=== PATIENT | male | born 1940 | race Caucasian/White ===

== ENCOUNTER 2018-03-27 06:33 | Day surgery (SDC) | payer MEDICARE ==
[~2018-03-27 06:33] MED LIST: Acetaminophen TAB* 325 MG PO PRN; Buffered Lidocaine 0.9% SYRIN* 5 ML/SYR SYRINGE INTRADERM ONE
[2018-03-27] MEDS ORDERED: Lidocaine 2% PF * 5 ML VIAL ONE (07:17)
[2018-03-27] MEDS ORDERED: Propofol* 10 MG/ML 20 ML BTL IV PUSH ONE (07:17)
[2018-03-27] MEDS ORDERED: fentaNYL* 50 MCG/ML 2 ML VIAL (100 MCG VIAL) ONE (07:17)
[2018-03-27] MEDS ORDERED: Midazolam* 1 MG/ML 5 ML VIAL (5 MG) ONE (07:18)
[2018-03-27] MEDS ORDERED: BSS OPTH.SOL* BTL ONE (07:25)
[2018-03-27] MEDS ORDERED: Bacitracin OINTMENT* 0.5% 0.5 oz TUBE ONE (07:26)
[2018-03-27] MEDS ORDERED: Bacitracin OPHTH.OINT* 3.5 GM ONE (07:26)
[2018-03-27 08:18] VITALS: BP 134/66
--- NOTE | 2018-03-27 22:20 | OP ---
DATE OF OPERATION: 03/27/18 [facility] DATE OF : 42 SURGEON: Lalo Fermin M.D. ANESTHESIA: Local with MAC. COMPLICATIONS: None. PREOPERATIVE DIAGNOSIS: Entropion, right lower lid. POSTOPERATIVE DIAGNOSIS: Entropion, right lower lid. OPERATIVE PROCEDURE: Inferior lid retractor tuck, right lower lid. DESCRIPTION OF PROCEDURE: The patient was prepped and draped in the usual sterile fashion. Lidocaine 2% with epinephrine was infused into the right lower eyelid approximately 2 cc. A successful traction suture placed through the lid margin and the lower eyelid pulled superiorly. A subciliary incision was made with a #15 XipLink-Luis blade. Dissection carried down to the level of the inferior lid retractor using hot cautery and plastic scissors. The inferior lid retractors were identified. Reapproximated to the inferior portion of the tarsal plate using 1 mattress 5-0 Mersilene suture. Hemostasis was achieved with cautery. The lid was closed using a running 6-0 silk suture. Topical Bacitracin ointment was placed. [id number]/CPS #: [id number] MTDD
== END 2018-03-27 08:14 | disposition home or self-care (01) ==
LOC: OREAST 06:33
PROVIDERS: ATTEND Specialist
DX: H02.032 Senile entropion of right lower eyelid (principal); H35.372 Puckering of macula, left eye; H33.8 Other retinal detachments; F17.210 Nicotine dependence, cigarettes, uncomplicated; I25.10 Atherosclerotic heart disease of native coronary artery without angina pectoris; E78.5 Hyperlipidemia, unspecified; Z85.46 Personal history of malignant neoplasm of prostate; J44.9 Chronic obstructive pulmonary disease, unspecified
CPT/HCPCS: A9270-GY; J2250; J2704; J3010

== ENCOUNTER 2020-01-30 18:27 | Emergency (ER) | payer MEDICARE ==
--- OUTSIDE RECORDS SUMMARY | 2020-01-30 19:02 | XMS REPORT | Continuity of Care Document ---
:1940 External Reference #:[id number] Author Name Marianna Hodges M.D. 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 Onset: 04/14/2014 Pure hypercholesterolemia Marianna Hodges M.D. Onset: 04/14/2014 Tobacco user Marianna Hodges M.D. Onset: 04/14/2014 Essential hypertension Marianna Hodges M.D. Onset: 03/29/2015 Mixed hyperlipidemia Marianna Hodges M.D. Onset: 07/17/2017 Localized, primary osteoarthritis of the pelvic Marlen Gonzalez M.D. Onset: 08/2019 region and thigh Social History Type Date Description Comments Sex Unknown Tobacco Use Start: Unknown Current Cigarette Smoker 1 Pack Daily Smoking Status Reviewed: 12/25/19 Current Cigarette Smoker 1 Pack Daily ETOH Use Denies alcohol use Tobacco Use Start: Unknown Patient is a current 1.5 packs a day smoker, smokes every day Recreational Drug Use Denies Drug Use Exercise Type/Frequency Exercises regularly Allergies, Adverse Reactions, Alerts Active Allergies Reaction Severity Comments Date Statins increase CPK per [facility] paper chart 03/19/2014 Niacin rash per [facility] paper chart 03/19/2014 Colestipol constipation per [facility] paper chart 03/19/2014 Zocor myalgias per [facility] paper chart 03/19/2014 Pravachol per [facility] paper chart 03/19/2014 Lescol per [facility] paper chart 03/19/2014 Lipitor 03/19/2014 Zetia no help per [facility] paper chart 03/19/2014 Penicillin "sweaty, dizziness" 04/14/2014 Medications Active Medications SIG Qnty Indications Ordering Provider Date Atenolol 1 by mouth every 90tabs Unknown 25mg Tablets day Crestor 1 by mouth every 90tabs Unknown 40mg Tablets day Aspirin 1 by mouth every Unknown 81mg Tablets day Dulcolax prn Unknown 5mg Tablets DR Acetaminophen 5 tabs po every Unknown 325mg day for pain Tablets Claritin-D 24 Hour 1 tab PO q day Unknown 10-240mg Tablets ER 24HR Anoro Ellipta Unknown 62.5-25mcg/Inh Aerosol Hydrocodone-Acetaminop maximum of 4 per Unknown hen day 5-325mg Tablets Medications Administered in Office Medication SIG Qnty Indications Ordering Provider Date No Injection Marlen Gonzalez M.D. 10/15/2019 Injection Depomedrol 40MG Marlen Gonzalez M.D. 10/15/2019 Injection Depomedrol 40MG Marlen Gonzalez M.D. 07/14/2019 Injection Depomedrol 40MG Marlen Gonzalez M.D. 04/04/2019 Injection Immunizations Description No Information Available Vital Signs Date Vital Result Comment 12/25/2019 3:49pm Height 68 inches 5'8" Weight 151.00 lb with shoes and heavy clothes Heart Rate 92 /min BP Systolic 128 mmHg rue reg cuff BP Diastolic 72 mmHg rue reg cuff BP Systolic Sitting 138 mmHg lue reg cuff BP Diastolic Sitting 72 mmHg lue reg cuff BP Systolic Standing 134 mmHg lue reg cuff BP Diastolic Standing 72 mmHg lue reg cuff Respiratory Rate 14 /min BMI (Body Mass Index) 23.0 kg/m2 Ejection Fraction none 12/01/2019 3:48pm Height 68 inches 5'8" Weight 144.00 lb Heart Rate 91 /min BP Systolic Sitting 127 mmHg left arm reg cuff BP Diastolic Sitting 66 mmHg left arm reg cuff O2 % BldC Oximetry 94 % room air BMI (Body Mass Index) 21.9 kg/m2 Results Test Acquired Date Facility Test Result H/L Range Note Comp Metabolic 11/25/2019 [facility] Sodium 136 mmol/L Normal 135-[address] [place] [address] [phone] Chloride 107 mmol/L Normal 101-111 Co2 Carbon Dioxide 24 mmol/L Normal 22-32 Glucose 109 mg/dL High 70-100 Blood Urea Nitrogen 31 mg/dL High 6-24 Creatinine 1.36 mg/dL High 0.67-1.17 BUN/Creatinine Ratio 22.8 High 8-20 Calcium 8.7 mg/dL Normal 8.6-10.3 Total Protein 6.3 g/dL Low 6.4-8.9 Albumin 3.8 g/dL Normal 3.2-5.2 Globulin 2.5 g/dL Normal 2-4 Albumin/Globulin Ratio 1.5 Normal 1-3 Total Bilirubin 0.30 mg/dL Normal 0.2-1.0 Alkaline Phosphatase 125 U/L High 34-104 Alt 26 U/L Normal 7-52 Ast 27 U/L Normal 13-39 Egfr Non- 50.7 >60 Egfr 61.3 >60 1 Potassium 5.4 mmol/L High 3.5-5.0 Anion Gap 5 mmol/L Normal 2-11 CBC No Diff 11/25/2019 [facility] White Blood 10.1 10^3/uL Normal 3.5-10.[address] [place] [address] [phone] Red Blood Count 4.80 10^6/uL Normal 4.18-5.48 Hemoglobin 15.7 g/dL Normal 14.0-18.0 Hematocrit 48 % Normal 42-52 Mean Corpuscular Volume 99 fL High 80-94 Mean Corpuscular Hemoglobin 33 pg High 27-31 Mean Corpuscular HGB Conc 33 g/dL Normal 31-36 Red Cell Distribution Width 15 % Normal 10-15 Platelet Count 294 10^3/uL Normal 150-450 Mean Platelet Volume 7.4 fL Normal 7.4-10.4 Protein 11/25/2019 [facility] Total 6.3 g/dL 6.3 - Electrophoresis [address] Protein(Pep) 7.9 [place] [address] [phone] Albumin 3.1 g/dL Abnormal 3.4-4.7 Alpha-1 Globulin 0.2 g/dL 0.1-0.3 Alpha-2 Globulin 1.2 g/dL Abnormal 0.6-1.0 Beta Globulin 1.0 g/dL 0.7-1.2 Gamma Globulin 0.8 g/dL 0.6-1.6 Albumin/Globulin Ratio 0.94 Impression See Comment 2 [place]/Lambda Free 11/25/2019 [facility] [place] Free 5.85 mg/dL Abnormal [address] [place] [address] [phone] Lambda Free Light Chain 3.16 mg/dL Abnormal 4 [place]/Lambda Free Light Chain 1.85 Abnormal 5 Laboratory test 11/25/2019 [facility] Complement C3 136 mg/dL 75 - 175 6 finding [address] [place] [address] [phone] Complement C4 32 mg/dL 14 - 40 7 Neutrophil Cytoplasmic 11/25/2019 [facility] C-Anca Negative Negative AB [address] [place] [address] [phone] P-Anca Negative Negative 8 Laboratory test 11/25/2019 [facility] Hepatitis B Not Immune Abnormal Immune finding [address] [place] [address] [phone] Hepatitis B Surface Ag Nonreactive Nonreactive Hepatitis B Core AB Total Negative Negative 9 Hepatitis C Antibody 11/25/2019 [facility] HCV Index 0.01 s/c [address] [place] [address] [phone] Hepatitis C Antibody Negative Negative Xray 10/15/2019 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 The National Kidney Disease Education Program (NKDEP) does not endorse the use of the MDRD equation for patients that are not between the ages of 18 and 70, are , have extremes of body size, muscle mass, or nutritional status, or are non- or non-. According to the National Kidney Foundation, irrespective of diagnosis, the stage of the disease is based on the level of kidney function: Stage Description GFR(mL/min/1.73 m(2)) 1 Kidney damage with normal or decreased GFR 90 2 Kidney damage with mild decrease in GFR 60-89 3 Moderate decrease in GFR 30-59 4 Severe decrease in GFR 15-29 5 Kidney failure <15 (or dialysis) 2 RESULT: No apparent monoclonal protein on serum electrophoresis. Test Performed by: [facility] [place] [address] Hospice Massage Therapist: Werner Medina M.D. Ph.D.; CLIA# [id number] 3 REFERENCE VALUE 0.3300-1.94 4 REFERENCE VALUE 0.5700-2.63 5 Elevated free light chain ratios between 1.66 and 3.00 may occur due to polyclonal hypergammaglobulinemia or impaired renal clearance. An isolated increased free light chain ratio in this range should be interpreted with caution, and clinical correlation is recommended. REFERENCE VALUE 0.2600-1.65 Test Performed by: [place] [address] Hospice Massage Therapist: Werner Medina M.D. Ph.D.; CLIA# [id number] 6 Test Performed by: [place] [address] Hospice Massage Therapist: Werner Medina M.D. Ph.D.; CLIA# [id number] 7 Test Performed by: [place] [address] Hospice Massage Therapist: Werner Medina M.D. Ph.D.; CLIA# [id number] 8 Negative for cANCA and pANCA patterns by immunofluorescence. ADDITIONAL INFORMATION This test was developed and its performance characteristics determined by [facility] in a manner consistent with CLIA requirements. This test has not been cleared or approved by the U.S. Food and Drug Administration. Test Performed by: [place] [id number] Hospice Massage Therapist: Werner Medina M.D. Ph.D.; CLIA# [id number] 9 Test Performed by: [place] [address] Hospice Massage Therapist: Werner Medina M.D. Ph.D.; CLIA# [id number] Procedures Date Code Description Status 12/25/2019 16869 EKG Tracing & Interpretation Completed 10/15/2019 Inj/Aspir Major JT Or Bursa W/ US Completed 07/14/2019 Inj/Aspir Major JT Or Bursa W/ US Completed Medical Devices Description No Information Available Encounters Type Date Location Provider Dx Diagnosis Office Visit 12/25/2019 [facility] Marianna Hodges, I25.10 Athscl heart 4:00p Of Karli Martinez. disease of [place] coronary artery w/o ang pctrs E78.2 Mixed hyperlipidemia Z72.0 Tobacco use Office Visit 12/01/2019 3:30p [facility] Brigida Stone, I12.9 Hypertensive chronic kidney disease w stg 1-4/unsp chr kdny N18.3 Chronic kidney disease, stage 3 (moderate) R80.9 Proteinuria, unspecified Assessments Date Code Description Provider 12/25/2019 I25.10 Atherosclerotic heart disease of [place] Marianna Hodges M.D. coronary artery without angina pectoris 12/25/2019 E78.2 Mixed hyperlipidemia Marianna Hodges M.D. 12/25/2019 Z72.0 Tobacco use Marianna Hodges M.D. 12/01/2019 I12.9 Hypertensive chronic kidney disease with stage Brigida Stone MD 1 through stage 4 chronic kidney disease, or unspecified chronic kidney disease 12/01/2019 N18.3 Chronic kidney disease, stage 3 (moderate) Brigida Stone MD 12/01/2019 R80.9 Proteinuria, unspecified Briigda Stone MD 10/15/2019 M25.551 Pain in right hip Marlen Gonzalez M.D. 10/15/2019 M16.11 Unilateral primary osteoarthritis, right hip Marlen Gonzalez M.D. 07/14/2019 M25.551 Pain in right hip Marlen Gonzalez M.D. 07/14/2019 M16.11 Unilateral primary osteoarthritis, right hip Marlen Gonzalez M.D. Plan of Treatment Future Appointment(s):01/02/2020 11:30 am - Marlen Gonzalez M.D. at [facility] [id number]/01/2020 3:30 pm - Brigida Stone MD at [facility] [place]10/ 30/2020 - Marianna Hodges M.D.I25.10 Atherosclerotic heart disease of [place] coronary artery without angina pectorisComments:ECG is stable.Recommendations: Continue current meds.E78.2 Mixed hyperlipidemiaComments:LDL goal <70, yours 96Per pt Zetia did not help in the past.Recommendations:New injectable medication to take with Crestor an option now/future.Z72.0 Tobacco useComments: I strongly recommend completely stopping cigarettes. Functional Status Description No Information Available Mental Status Description No Information Available Referrals Description No Information Available
--- OUTSIDE RECORDS SUMMARY | 2020-01-30 19:02 | XMS REPORT | Continuity of Care Document ---
:1940 External Reference #:[id number] Author Name Marlen Gonzalez M.D. (transmitted by agent of provider Steff Juarez) Address [address] [place] [phone] Care Team Providers Name Role Phone Lang Reeves MD - Family Medicine Care Team Information Associate Professor Physician Problems Active Problems Provider Date Coronary arteriosclerosis [...] Available Vital Signs Date Vital Result Comment 01/02/2020 11:41am Height 68 inches 5'8" Heart Rate 96 /min BP Systolic 122 mmHg BP Diastolic 76 mmHg Respiratory Rate 18 /min Pain Level 5 12/25/2019 3:49pm Height 68 inches 5'8" Weight [...] Mass Index) 23.0 kg/m2 Ejection Fraction none Results Test Acquired Date Facility Test Result H/L Range Note Comp Metabolic 11/25/2019 [facility] Sodium 136 mmol/L Normal 135-[address] [place] [address] [phone] Chloride 107 mmol/L Normal 101-111 Co2 Carbon [...] mmol/L Normal 2-11 CBC No Diff 11/25/2019 [facility] White Blood 10.1 10^3/uL Normal 3.5-10.[address] [place] [address] [phone] Red Blood Count 4.80 10^6/uL Normal 4.18-5.48 Hemoglobin 15.7 g/dL Normal 14.0-18.0 Hematocrit 48 % Normal 42-52 Mean Corpuscular Volume 99 fL High 80-94 Mean Corpuscular Hemoglobin 33 pg High 27-31 Mean Corpuscular HGB Conc 33 g/dL Normal 31-36 Red Cell Distribution Width 15 % Normal 10-15 Platelet Count 294 10^3/uL Normal 150-450 Mean Platelet Volume 7.4 fL Normal 7.4-10.4 Protein 11/25/2019 [facility] Total 6.3 g/dL 6.3 - Electrophoresis [address] Protein(Pep) 7.9 [place] [address] [phone] Albumin 3.1 g/dL Abnormal 3.4-4.7 Alpha-1 Globulin 0.2 g/dL 0.1-0.3 Alpha-2 Globulin 1.2 g/dL Abnormal 0.6-1.0 Beta Globulin 1.0 g/dL 0.7-1.2 Gamma Globulin 0.8 g/dL 0.6-1.6 Albumin/Globulin Ratio 0.94 Impression See Comment 2 [place]/Lambda Free 11/25/2019 [facility] [place] Free 5.85 mg/dL Abnormal [address] [place] [address] [phone] Lambda Free Light Chain 3.16 mg/dL Abnormal 4 [place]/Lambda Free Light Chain 1.85 Abnormal 5 Laboratory test 11/25/2019 [facility] Complement C3 136 mg/dL 75 - [address] [place] [address] [phone] Complement C4 32 mg/dL 14 - 40 7 Neutrophil Cytoplasmic 11/25/2019 [facility] C-Anca Negative Negative AB [address] [place] [address] [phone] P-Anca Negative Negative 8 Laboratory test 11/25/2019 [facility] Hepatitis B Not Immune Abnormal Immune finding [address] [place] [address] [phone] Hepatitis B Surface Ag Nonreactive Nonreactive Hepatitis B Core AB Total Negative Negative 9 Hepatitis C Antibody 11/25/2019 [facility] HCV Index 0.01 s/c [address] [place] [address] [phone] Hepatitis C Antibody Negative Negative Xray 10/15/2019 Housekeeper In House Inj/Aspir Major JT Or Bursa [...] protein on serum electrophoresis. Test Performed by: [place] [address] Ob Tech: Werner Medina M.D. Ph.D.; CLIA# [id number] 3 REFERENCE VALUE 0.3300-1.94 4 REFERENCE VALUE 0.5700-2.63 5 Elevated free light chain ratios between 1.66 and 3.00 may occur due to polyclonal hypergammaglobulinemia or impaired renal clearance. An isolated increased free light chain ratio in this range should be interpreted with caution, and clinical correlation is recommended. REFERENCE VALUE 0.2600-1.65 Test Performed by: [place] [address] Ob Tech: Werner Medina M.D. Ph.D.; CLIA# [id number] 6 Test Performed by: [place] [address] Ob Tech: Werner Medina M.D. Ph.D.; CLIA# [id number] 7 Test Performed by: [place] [address] Ob Tech: Werner Medina M.D. Ph.D.; CLIA# [id number] 8 Negative for cANCA and pANCA patterns by immunofluorescence. ADDITIONAL INFORMATION This test was developed and its performance characteristics determined by [facility] in a manner consistent with CLIA requirements. This test has not been cleared or approved by the U.S. Food and Drug Administration. Test Performed by: [facility] - [address] [address] Ob Tech: Werner Medina M.D. Ph.D.; CLIA# [id number] 9 Test Performed by: [place] [address] Ob Tech: Werner Medina M.D. Ph.D.; CLIA# [id number] Procedures Date Code Description Status 12/25/2019 20172 EKG Tracing & Interpretation Completed 10/15/2019 Inj/Aspir Major JT Or Bursa W/ US Completed 07/14/2019 Inj/Aspir Major JT Or Bursa W/ US Completed Medical Devices Description No Information Available Encounters Type Date Location Provider Dx Diagnosis Office Visit 01/02/2020 [facility] Marlen Gonzalez, M25.551 Pain in right hip 11:30a at [facility] M16.11 Unilateral primary osteoarthritis, right hip Office Visit 12/01/2019 3:30p [facility] Brigida Stone, I12.9 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 01/02/2020 M16.11 Unilateral primary osteoarthritis, right hip Marlen Gonzalez M.D. 12/25/2019 I25.10 Atherosclerotic heart disease of [place] Marianna Hodges M.D. coronary artery without angina pectoris 12/25/2019 E78.2 Mixed hyperlipidemia Marianna Hodges M.D. 12/25/2019 Z72.0 Tobacco use Marianna Hodges M.D. 12/01/2019 I12.9 Hypertensive chronic kidney disease with stage Brigida Stone MD 1 through stage 4 chronic kidney disease, or unspecified chronic kidney disease 12/01/2019 N18.3 Chronic kidney disease, stage 3 (moderate) Brigida Stone MD 12/01/2019 R80.9 Proteinuria, unspecified Brigida Stone MD 10/15/2019 M25.551 Pain in right hip Marlen Gonzalez M.D. 10/15/2019 M16.11 Unilateral primary osteoarthritis, right hip Marlen Gonzalez M.D. 07/14/2019 M25.551 Pain in right hip Marlen Gonzalez M.D. 07/14/2019 M16.11 Unilateral primary osteoarthritis, right hip Marlen Gnozalez M.D. Plan of Treatment Future Appointment(s):03/01/2020 3:30 pm - Brigida Stone MD at [facility] [id number] /07/2020 - Marlen Gonzalez M.D.M25.551 Pain in right hipFollow up:Follow up: 7- 10 days before zxuuigtL41.11 Unilateral primary osteoarthritis, right hip Functional Status Description No Information Available Mental Status Description No Information Available Referrals Description No Information Available
[2020-01-30] MEDS ORDERED: NS 0.9% 1000 ML** 2,000 ML IV ONE (20:05)
[2020-01-30] MEDS ORDERED: Glucagon* 1 MG VIAL IM ONE (20:06)
--- NOTE | 2020-01-30 20:12 | ED ---
Throat Pain/Nasal Congestion - HPI Summary HPI Summary: This patient is a 79 year old M presenting to [facility] accompanied by with a chief complaint of trouble swallowing and difficulty breathing since 1100. At 1100 pt was eating a sausage sub, and the sausage doesnt want to go down. Now pt cannot drink water and is having increasing difficulty breathing. Pt has been scoped 4-5 years ago at [facility], and the results were pretty normal according to . Pt has PMHX of severe angina (had an angioplasty), and COPD. Home Medications Medication Instructions Recorded Confirmed Type Aspirin [Aspirin 81] 81 mg PO BEDTIME 12/11/14 03/27/18 History oxyCODONE/Acetamin 5/325 MG* 1 tab PO QID 12/11/14 03/27/18 History [Percocet 5/325 TAB*] LoraTADine TAB(NF) [Claritin 10 MG 10 mg PO QPM 06/05/17 03/27/18 History TAB(NF)] Nitroglycerin TAB 0.4 MG* 0.4 mg SL Q5M PRN 06/05/17 03/27/18 History Atenolol TAB* [Tenormin TAB* 25 MG] 25 mg PO BEDTIME 03/22/18 03/27/18 History Bisacodyl [Dulcolax] 5 mg PO BEDTIME PRN 03/22/18 03/27/18 History Pantoprazole TAB (NF) [Protonix 20 mg PO BEDTIME 03/22/18 03/27/18 History TAB (NF)] Rosuvastatin Calcium 40 mg PO BEDTIME 03/22/18 03/27/18 History Umeclidin/Vilant 62.5 MDI(NF) 1 puff INH QAM 03/22/18 03/22/18 History [ANORO 62.5/25 Ellipta DEVICE (NF)] - History of Current Complaint Chief Complaint: EDForeignBodyEsophag Time Seen by Provider: 01/30/20 19:56 Hx Obtained From: Patient, Family/Rail Walker Onset/Duration: Sudden Onset, Still Present Severity: Mild Associated Signs And Symptoms: Positive: FB Sensation Cough: None - Allergies/Home Medications Allergies/Adverse Reactions: Allergies Allergy/AdvReac Type Severity Reaction Status Date / Time atorvastatin Allergy Severe CANNOT WALK Verified 01/30/20 20:34 niacin Allergy Severe DIDN'T WORK Verified 01/30/20 20:34 pravastatin Allergy Severe CANNOT WORK Verified 01/30/20 20:34 Penicillins Allergy GI Upset Verified 01/30/20 20:34 Home Medications: Home Medications Aspirin [Aspirin 81] 81 mg PO BEDTIME 12/11/14 [History Confirmed 01/30/20] oxyCODONE/Acetamin 5/325 MG* [Percocet 5/325 TAB*] 1 tab PO QID 12/11/14 [ History Confirmed 01/30/20] Nitroglycerin TAB 0.4 MG* 0.4 mg SL Q5M PRN 06/05/17 [History Confirmed 01/30/20 ] Atenolol TAB* [Tenormin TAB* 25 MG] 25 mg PO BEDTIME 03/22/18 [History Confirmed 01/30/20] Bisacodyl [Dulcolax] 5 mg PO BEDTIME PRN 03/22/18 [History Confirmed 01/30/20] Pantoprazole TAB (NF) [Protonix TAB (NF)] 20 mg PO BEDTIME 03/22/18 [History Confirmed 01/30/20] Rosuvastatin Calcium 40 mg PO BEDTIME 03/22/18 [History Confirmed 01/30/20] Umeclidin/Vilant 62.5 MDI(NF) [ANORO 62.5/25 Ellipta DEVICE (NF)] 1 puff INH QAM 03/22/18 [History Confirmed 01/30/20] PMH/Surg Hx/FS Hx/Imm Hx Cardiovascular History: Reports: Hx Angina - 10/06/1993 resolved- angioplasty, Hx Hypertension, Other Cardiovascular Problems/Disorders - CHOLESTEROL CONTROL WITH MEDS Respiratory History: Reports: Hx Chronic Obstructive Pulmonary Disease (COPD) GI History: Reports: Hx Ulcer - stomach ulcer, Other GI Disorders - stretched esophagus History: Reports: Other Problems/Disorders - NEPHRITIS AT AGE 11, NO PROBLEMS SINCE Musculoskeletal History: Reports: Hx Arthritis - GENERALIZED Sensory History: Reports: Hx Cataracts - HX OF, Hx Contacts or Glasses - GLASSES Denies: Hx Hearing Aid Opthamlomology History: Reports: Hx Cataracts - HX OF, Hx Contacts or Glasses - GLASSES Neurological History: Comment Only: Other Neuro Impairments/Disorders - BILATERAL CARPAL TUNNEL Psychiatric History: Reports: Hx Depression - NO MEDS - Cancer History Hx Chemotherapy: No - Surgical History Surgery Procedure, Year, and Place: 1995 & 1997 CATARACT EXTRACTION WITH IOL LENS IMPLANT, [facility]. 2005 PROSTATECTOMY, [facility]. 2006 APPENDECTOMY, [facility]. 2006 LEFT INGUINAL HERNIA REPAIR, [facility]. 2014 LEFT RETINAL EYE BAND, [facility]. left carpal tunnel release - Dr.Young Bone Anesthesia Reactions: No Infectious Disease History: No Infectious Disease History: Denies: Traveled Outside the [place] in Last 30 Days - Social History Alcohol Use: None Substance Use Type: Reports: None Smoking Status (MU): Former Smoker Amount Used/How Often: 1ppd smoked off and on for approx 65 years Review of Systems Positive: Other - FB sensation Positive: Shortness Of Breath All Other Systems Reviewed And Are Negative: Yes Physical Exam - Summary Physical Exam Summary: Appearance: Well-appearing, Well-nourished, lying in bed comfortably Skin: Warm, dry, no obvious rash Eyes: sclera anicteric, no conjunctival pallor HENT: mucous membranes moist, Indicates discomfort and foreign body discomfort at level of the sternal notch Neck: Supple, nontender Respiratory: Clear to auscultation, no signs of respiratory distress Cardiovascular: Normal S1, S2. No murmurs. Normal distal pulses in tibial and radial bilaterally. Abdomen: Soft, nontender, normal active bowel sounds present Musculoskeletal: Normal, Strength/ROM Intact Neurological: A&Ox3, awake and alert, mentation is normal, speech is fluent and appropriate Psychiatric: affect is normal, does not appear anxious or depressed Triage Information Reviewed: Yes Vital Signs On Initial Exam: Initial Vitals Temp Pulse Resp BP Pulse Ox 98.4 F 101 16 136/105 95 01/30/20 18:53 01/30/20 18:53 01/30/20 18:53 01/30/20 18:53 01/30/20 18:53 Vital Signs Reviewed: Yes Procedures - Sedation Patient Received Moderate/Deep Sedation with Procedure: Yes Are You The Provider Who Administered The Sedation: [place] of Provider Whom Sedated Patient: Tim Finnegan - Vital Signs Vital Signs Temp Pulse Resp BP Pulse Ox 01/30/20 18:53 98.4 F 101 16 136/105 95 - Laboratory Lab Statement: Any lab studies that have been ordered have been reviewed, and results considered in the medical decision making process. Re-Evaluation - Re-Evaluation Second Eval Re-Evaluation Time: 20:36 Comment: Checked on pt condition. First Eval Re-Evaluation Time: 20:08 Comment: Discussed what Dr. Finnegan reccomended. EENT Course/Dx - Course Course Of Treatment: This patient is a 79 year old M presenting to [facility] accompanied by with a chief complaint of trouble swallowing and difficulty breathing since 1100. At 1100 pt was eating a sausage sub, and the sausage doesnt want to go down. Now pt cannot drink water and is having increasing difficulty breathing. Pt has PMHX of severe angina (had an angioplasty), and COPD. Physical Exam Findings are normal except pt indicates discomfort and foreign body discomfort at level of the sternal notch. In the ED course the patient was given glucagon, and fluids. We discussed patient care with Dr. Finnegan. Patient will be discharged with follow up from Dr. Finnegan. The patient is agreeable with this plan. - Diagnoses Provider Diagnoses: Esophageal foreign body - Provider Notifications Discussed Care Of Patient With: Tim Finnegan Time Discussed With Above Provider: 20:02 Discharge ED - Sign-Out/Discharge Documenting (check all that apply): Patient Departure - Ds[place]arge - Discharge Plan Condition: Improved Disposition: HOME Patient Education Materials: Esophageal Foreign Body (ED), Moderate Sedation ( ED) Referrals: Lang Reeves MD [Primary Care Provider] - Tim Finnegan MD [Medical Doctor] - 02/06/20 - Billing Disposition and Condition Condition: IMPROVED Disposition: Home - Attestation Statements Document Initiated by Joselo: Yes Documenting Scribe: Idania Ann Provider For Whom Joselo is Documenting (Include Credential): Dilan Dasilva MD Scribe Attestation: Idania Bazan scribed for Dilan Dasilva MD on 02/02/20 at 0108. Scribe Documentation Reviewed: Yes Provider Attestation: The documentation as recorded by the Idania liang accurately reflects the service I personally performed and the decisions made by me, Dilan Dasilva MD Status of Scribe Document: Viewed
[2020-01-30] MEDS ORDERED: Lactated Ringers 1000 ML Bag* 1,000 ML IV SCH (20:41)
[2020-01-30] MEDS ORDERED: Midazolam* 1 MG/ML 10 ML VIAL (10 MG) ONE (20:58)
[2020-01-30] MEDS ORDERED: fentaNYL* 50 MCG/ML 2 ML VIAL (100 MCG VIAL) ONE (20:58)
--- NOTE | 2020-01-30 23:02 | CONS ---
GASTROENTEROLOGY CONSULT: DATE: CONSULTING PHYSICIANS: Dilan Dasilva, emergency room; Lang Reeves. INDICATION: Meat impaction in the esophagus. HISTORY: This 79-year-old man, with a long history of intermittent solid food dysphagia, felt something lodged at around 11 a.m. today. He was eating a sausage sub. He struggled with it all day long and came to the emergency room around 8 p.m. with it still stuck spitting up all his saliva. He has been given glucagon with no effect. He has had this problem with shorter episodes for many years. He had an event where he spent several hours in the bathroom at a steak house, finally brought up a piece of meat. He never sought evaluation for that. At some later point, Dr. Reeves referred him over. He had upper endoscopy May [address] Felix, which showed some rings in the esophagus. There was no dilation. He does not recall being put on any particular medicine. He denies acid indigestion or heartburn, but he is listed as taking pantoprazole 20 mg at night - not taking. In general, he has a good appetite. His weight is steady. He is a smoker. PAST MEDICAL HISTORY: 1. Coronary disease - status post angioplasty in the mid . He is followed by Dr. Hodges. 2. Chronic dysphagia. 3. History of multiple colon polyps including 12 at one of his followup exams. The most recent colonoscopy was May 2012. 4. Status post appendectomy 2005. 5. Status post operative prostatectomy - 2005, Dr. Cosme. 6. Status post cataract resections 2017. 7. Carpal tunnel surgery - November 2014. 8. COPD - still smoking MEDICATIONS: 1. Atenolol 25 h.s. 2. Rosuvastatin 40 h.s. 3. Aspirin 81. 4. Anoro inhaler. 5. Oxycodone. 6. Pantoprazole 20 mg listed h.s.(in the [employer] list) though not taking confirmed by his ALLERGIES: Listed as ATORVASTATIN, NIACIN, and PENICILLIN. 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 REVIEW OF SYSTEMS: No history of fever, productive cough, asthma, TB, lung masses, HI, valvular disease, hepatitis, jaundice, anemia. EXAM: He is a slender, somewhat underweight-appearing older man in no overt distress. He is spitting into a cup. HEENT exam is unremarkable. There is no icterus. He is still actively spitting saliva. He has no adenopathy. Lungs are symmetric with diminished breath sounds, but in all 4 quadrants. Heart sounds are somewhat distant but regular. The abdomen is scaphoid, firm, and without focal tenderness. Rectal deferred. Extremities show no edema. He has intact pulses. Neurologic: Nonfocal. LABS: Hemoglobin 15.7, hematocrit 48, MCV 99, platelets 294. Albumin 3.8, LFTs normal, BUN 31, creatinine 1.36. The labs are from [facility], the only CBC and profile in the chart and current database. The labs October 2019 included some vasculitis studies and studies for kappa/lambda light chain. A 24-hour urine November 2018 was elevated at 880 mg. IMPRESSION: Esophageal foreign body in a man who had esophageal rings 2-1/2 years ago. Histology then showed erosive changes, but there is no comment about the eosinophils even though it was questioned in the requisition. It seems most likely that he has occult GERD, though as a smoker malignancy is a consideration. The foreign body will be relieved with dilation expedited in the next ten days as he has a joint replacement scheduled shortly . He knows there is 2% or 3% chance of hospitalization and other complications. [id number]/[facility] #: [id number] MTDD
[2020-01-31 00:44] VITALS: BP 115/70
--- NOTE | 2020-01-31 04:53 | PRO ---
DATE: 01/30/20 - EMERGENCY DEPT REFERRING PHYSICIAN: Lang Reeves; Dilan Dasilva in ER * PROCEDURE: Upper gastrointestinal endoscopy and dislodgment/removal of impacted meat+ Bx of thickened esophagogastric junction fold at 40 cm INDICATION: This 79-year-old man came to the emergency room with a meat impaction. This has happened numerous times before. See preprocedural consultation. Informed consent was obtained with the patient aware of potential complications and a low chance of requiring readmission. ENDOSCOPIST: Dr. Finnegan. MEDICATIONS : Midazolam 6; fentanyl 37.5. FINDINGS: a slender elderly man in no overt distress positioned left side down and moderate sedation induced with sequential doses of medication EGD: Larynx - not seen. Esophagus - Easily entered. The mucosa is normal in the upper and mid esophagus and then retained fluid is seen with floating pieces of meat and then a rather disorganized amorphous plugging of meat at about 38 cm. It was blunt tipped explored with the scope, which could probe through and found the path to the gastric fundus. Doing this several times dislodged the meat in several fragments into the fundus. The impaction was cleared. There was clearly considerable scarring and then a ring at about 39 to 39.5 cm. There was then a [id number] hiatal hernia. Stomach - wispy gastritis in the body and to a less extent proximal antrum. There were no ulcers and no active bleeding. There were no abnormalities in the fundus. Duodenum - the pylorus, bulb and second through fourth portions were normal apart from a smooth intramucosal lump at about 4 o'clock orientation in the distal second portion. It appeared benign. IMPRESSION: 1. Esophageal foreign body - now cleared. 2. Moderate hiatal hernia. 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 4. Thickened fold, esophagogastric junction, biopsied at 2 o'clock orientation. Addendum: benign with no intestinal metaplasia 5. Smooth duodenal filling defects in the wall - appears not clinically significant. 6. Gastritis - [id number], but without active blood loss and most likely from low dose aspirin, which can be continued given his history of coronary artery disease and active smoking. [id number]/[facility] #: [id number] [facility]
== END 2020-01-31 00:41 | disposition home or self-care (01) ==
LOC: ED 18:27
DX: S10.15XA Superficial foreign body of throat, initial encounter (principal); R06.02 Shortness of breath; I10 Essential (primary) hypertension; J44.9 Chronic obstructive pulmonary disease, unspecified; R13.10 Dysphagia, unspecified; F32.9 Major depressive disorder, single episode, unspecified; E78.00 Pure hypercholesterolemia, unspecified; X58.XXXA Exposure to other specified factors, initial encounter; Y92.9 Unspecified place or not applicable; Z79.82 Long term (current) use of aspirin; Z87.891 Personal history of nicotine dependence; Z95.5 Presence of coronary angioplasty implant and graft; Z88.0 Allergy status to penicillin
CPT/HCPCS: 88305; 96360; 96361; 96372; 99156; 99285; J1610; J2250; J3010

== ENCOUNTER 2020-04-16 07:23 | Observation (INO) ==
[~2020-04-16 07:23] MED LIST changes: -Acetaminophen TAB* 325 MG PO PRN; -Buffered Lidocaine 0.9% SYRIN* 5 ML/SYR SYRINGE INTRADERM ONE; +Dexamethasone IV 4 MG/ML VIAL 1 ml VIAL IV SLOW PU ONE; +Famotidine IV 10 MG/ML 2 ml VIAL (20 mg) IV ONE; +Lactated Ringers 1000 ml BAG 1,000 ML IV SCH; +Levalbuterol 1.25MG/0.5ML NEB.SOL INH ONE
[2020-04-16] MEDS ORDERED: Levalbuterol 1.25MG/0.5ML NEB.SOL ONE (07:55)
[2020-04-16] MEDS ORDERED: Dexamethasone IV 4 MG/ML VIAL 1 ml VIAL ONE (07:55)
[2020-04-16] MEDS ORDERED: Famotidine IV 10 MG/ML 2 ml VIAL (20 mg) ONE (07:55)
[2020-04-16] MEDS ORDERED: fentaNYL 100 mcg/2 ml 50 MCG/ML VIAL ONE (08:26)
[2020-04-16] MEDS ORDERED: Midazolam 2 mg/2 ml VIAL 1 mg/ml 2 ml VIAL (2 mg) ONE (08:26)
[2020-04-16] MEDS ORDERED: Lidocaine 2% JELLY 6 ML TOPICAL ONE (09:23)
[2020-04-16] MEDS ORDERED: Levalbuterol 0.63MG/3ML NEB UNIT OF USE INH PRN (10:36)
[2020-04-16] MEDS ORDERED: HYDROmorphone 1 MG/1 ML SYRINGE IV PRN (10:36)
[2020-04-16] MEDS ORDERED: fentaNYL 100 mcg/2 ml 50 MCG/ML VIAL IV PRN (10:36)
[2020-04-16] MEDS ORDERED: Ondansetron 4 mg VIAL 2 MG/ML 2 ml VIAL IV PRN ×2 (10:36→12:06)
[2020-04-16] MEDS ORDERED: Naloxone 0.4 mg VIAL 0.4 mg/ml 1 ml VIAL IV PRN (10:36)
[2020-04-16] MEDS ORDERED: Magnesium Hydroxide LIQ 30 ML UDC PO PRN (12:06)
[2020-04-16] MEDS ORDERED: diPHENhydraMINE IV 50 MG/ML 1 ml VIAL (BENADRYL) IV PRN (12:06)
[2020-04-16] MEDS ORDERED: Lactulose 30 ml UDC PO PRN (12:06)
[2020-04-16] MEDS ORDERED: diPHENhydraMINE 25 mg TAB PO PRN (12:06)
[2020-04-16] MEDS ORDERED: oxyCODONE/Acetamin 5/325 mg TAB PO PRN ×2 (12:06)
[2020-04-16] MEDS ORDERED: Ondansetron ODT 4 mg TAB 4 MG TAB PO PRN (12:06)
[2020-04-16] MEDS ORDERED: oxyCODONE/Acetamin 5/325 mg TAB ONE (12:21)
[2020-04-16] MEDS ORDERED: Lactated Ringers 1000 ml BAG 1,000 ML IV SCH (13:00)
[2020-04-16] MEDS ORDERED: Albuterol/Ipratropium NEB.SOL (2.5/0.5 MG) 3 ML NEB.SOLN INH PRN (13:46)
[2020-04-16] MEDS: ceFAZolin 1 GM ADVAN 1 GM in NS 0.9% 50 ML 50 ML IVPB SCH ×2 (15:44→23:28)
[2020-04-16] MEDS ORDERED: Morphine 2 MG/ML SYRINGE ONE (17:15)
[2020-04-16] MEDS ORDERED: Morphine 2 MG/ML SYRINGE IV PRN (17:19)
[2020-04-16] MEDS ORDERED: Morphine 2 MG/ML SYRINGE IV ONE (18:55)
[2020-04-16] MEDS ORDERED: CMCS: Rosuvastatin 20 mg TAB (NF) PO SCH (21:00)
[2020-04-16] MEDS: Magnesium Hydroxide LIQ 30 ML UDC PO SCH (21:19)
[2020-04-16] MEDS: Morphine 2 MG/ML SYRINGE IV PRN ×2 (21:19→23:32)
[2020-04-17] MEDS ORDERED: Polyethylene Glycol 3350 17 GM PACKET PO PRN (00:01)
[2020-04-17 04:49] LABS: Hematocrit 40 % (42-52); Hemoglobin 13.6 g/dL (14.0-18.0); Mean Platelet Volume 7.2 fL (7.4-10.4); Platelet Count 226 10^3/uL (150-450)
[2020-04-17 05:08] LABS: BUN/Creatinine Ratio 18.9 (8-20); Calcium 8.6 mg/dL (8.6-10.3); EGFR African American 77.5 (>60); EGFR Non-African American 64.1 (>60)
[2020-04-17 05:15] LABS: Potassium 5.3 mmol/L (3.5-5.0)
[2020-04-17] MEDS: Morphine 2 MG/ML SYRINGE IV PRN (06:21)
[2020-04-17] MEDS ORDERED: Nicotine PATCH 21 MG/24 HR PATCH TRANSDERM SCH (08:00)
[2020-04-17] MEDS: ceFAZolin 1 GM ADVAN 1 GM in NS 0.9% 50 ML 50 ML IVPB SCH (08:11)
[2020-04-17] MEDS: Magnesium Hydroxide LIQ 30 ML UDC PO SCH (08:25)
[2020-04-17] MEDS ORDERED: Vitamin THERAPEUTIC TAB PO SCH (09:00)
[2020-04-17] MEDS ORDERED: Tiotropium Brom/Olodaterol MDI INH SCH (09:00)
[2020-04-17] MEDS ORDERED: Sodium Polystyrene ORAL.SUSP 15 GM/60 ML BTL PO ONE (09:09)
[2020-04-17 11:05] VITALS: BP 124/65
[2020-04-17] MEDS ORDERED: Aspirin EC 81 mg TAB.EC (enteric coated) PO SCH (21:00)
== END 2020-04-17 13:40 | disposition home or self-care (01) ==
LOC: SSU 07:23 → OR 07:23
PROVIDERS: ADMIT Orthopaedic Surgery Adult Reconstructive Orthopaedic Surgery; ATTEND Orthopaedic Surgery Adult Reconstructive Orthopaedic Surgery